=== PATIENT | female | born 1975 | race Caucasian/White ===

== ENCOUNTER 2024-07-26 15:07 | Outpatient (CLI) | payer OTHER, SELFPAY ==
--- NOTE | ~2024-07-26 | MM_ITS ---
EXAMINATION: MM screening nikki BI w mary ann HISTORY: Screening mammogram TECHNIQUE: Craniocaudal and mediolateral oblique 3-D tomosynthesis images were obtained and synthetic 2-D images were generated. CAD analysis was submitted and interpreted. COMPARISON: No prior mammogram is available for comparison at this institution. BREAST PARENCHYMAL COMPOSITION:Dense: The breasts are heterogeneously dense, which may obscure small masses. FINDINGS: No suspicious mass, calcification, or architectural distortion are identified in either kashif ast to suggest malignancy. There has been no suspicious interval change. IMPRESSION: No mammographic evidence of malignancy. Recommend routine screening mammography in one year. BI-RADS Category 1: Negative Reviewed, dictated and finalized at location . ION MASTER
== END 2024-07-26 15:08 | disposition home or self-care (01) ==
PROVIDERS: PCP Internal Medicine; Visit Provider Internal Medicine
DX: Z12.31 Encounter for screening mammogram for malignant neoplasm of breast (principal)
CPT/HCPCS: 77063; 77067

== ENCOUNTER 2024-08-01 09:14 | Emergency (ER) | payer OTHER, SELFPAY ==
--- NOTE | ~2024-08-01 | XR_ITS ---
EXAMINATION: XR chest 2V DATE: 08/01/2024 09:52 INDICATION: Productive cough TECHNIQUE: PA and lateral views of the chest were obtained. COMPARISON: None FINDINGS: The lungs are clear with no focal airspace opacities, pulmonary edema, pleural effusion or pneumothor ax. The cardiomediastinal silhouette is normal. Mild thoracic spondylosis. IMPRESSION: 1. No acute cardiopulmonary disease. Reviewed, dictated and finalized at location A. ICIST SOLID STATE
[2024-08-01 09:22] VITALS: BP 130/86; PULSE 58; RESP 16; TEMP 35.3; O2SAT 100
--- NOTE | 2024-08-01 09:31 | ED.URI ---
HPI - URI/Sore Throat General Chief Complaint: Upper Respiratory Infection Stated Complaint: Cough Source: patient, RN notes reviewed and old records reviewed Mode of arrival: ambulatory Limitations: no limitations History of Present Illness HPI Narrative: Patient currently being treated with Tamiflu for influenza presents with complaints of feeling worse instead of better. She reports that multiple members of her family are sick, everybody except her seems to be getting better. Her symptoms began about 4 days ago. She reports worsening cough, excessive sputum production. Intermittent wheezing. Subjective fever. She has been taking uofr-axz-djzmtmg remedies along with her Tamiflu, minimal relief. Related Data Home Medications ?Medication ?Instructions ?Recorded ?Confirmed ?Last Taken ?Type bupropion HCl 150 mg 24 hr tablet, 150 mg PO DAILY 08/01/24 08/01/24 Unknown History extended release oseltamivir 75 mg capsule 75 mg PO Q12H 08/01/24 08/01/24 Unknown History sertraline 100 mg tablet 100 mg PO Q24H 08/01/24 08/01/24 Unknown History Allergies Allergy/AdvReac Type Severity Reaction Status Date / Time No Known Allergies Allergy Verified 08/01/24 09:49 Review of Systems Review of Systems: All systems reviewed & are unremarkable except as noted in HPI and below Constitutional: Constitutional: Reports as per HPI, Reports no additional constitutional complaints, Reports fever(s), Reports headache(s) and Reports lethargy ENT: Reports system reviewed and no additional complaints, except as documented and Reports nasal discharge Cardiovascular: Cardiovascular: Reports no additional cardiovascular complaints Respiratory: Respiratory: Reports no additional respiratory complaints, Reports chest congestion, Reports cough, Reports excessive phlegm production and Reports wheezing Gastrointestinal: Gastrointestinal: Reports no additional gastrointestinal complaints PMFSH Comments At the time of my signature, I reviewed and agree with the nursing past medical, surgical, social, and family history. There is no relevant family history pertinent to the patient complaint. Exam Const: General: cooperative, no acute distress, alert and awake Orientation/consciousness: oriented to person, oriented to place and oriented to time HENMT: Head: normal to inspection Mouth: Yes moist mucous membranes Resp: Effort & Inspection: normal respiratory effort and able to speak in complete sentences Auscultation: clear to auscultation bilaterally, no crackles, no rales, no rhonchi and no wheezes Cardio: Palpation: normal PMI Rate: regular rate Rhythm: regular rhythm Heart sounds: S1 normal heart sound present and S2 normal heart sound present Neuro: General: oriented to person, oriented to place and oriented to time Cranial nerves: Yes CN's II-XII intact bilaterally Psych: Appearance: grossly normal Thought process: Normal thought process present Insight: Good insight present (Psych) Judgement: Good judgement present (Psych) Course Course Level of Care: Express Care Visit Vital Signs Vital signs: Vital Signs Temperature 95.5 F L 08/01/24 09:22 Pulse Rate 58 L 08/01/24 09:22 Respiratory Rate 16 08/01/24 09:22 Blood Pressure 130/86 08/01/24 09:22 Pulse Oximetry 100 08/01/24 09:22 Oxygen Delivery Room Air 08/01/24 09:22 Temperature 95.5 F L 08/01/24 09:22 Pulse Rate 58 L 08/01/24 09:22 Respiratory Rate 16 08/01/24 09:22 Blood Pressure 130/86 08/01/24 09:22 Pulse Oximetry 100 08/01/24 09:22 Oxygen Delivery Room Air 08/01/24 09:22 Reviewed MDM - URI/Sore Throat MDM Narrative Medical decision making narrative: Patient currently being treated for influenza, negative chest x-ray today. Will treat symptomatically. Patient is nontoxic appearing, stable for discharge home Discharge instructions reviewed with patient, as well as provided in writing per nursing staff. The instructions also include specific and strict return/GO TO THE ER as well as f/u information. All questions have been answered, and the patient deny any further questions with discharge and discharge plan. Some parts of this dictation were generated by voice recognition software and may contain typographical and/or grammatical inaccuracies. Differential Diagnosis Differential diagnosis: Likely upper respiratory infection, otitis media, sinusitis and viral infection Medical Records Attestation: I reviewed the patient's medical records. Imaging Data Attestation: I personally reviewed and interpreted this imaging study as follows: My impression: Negative Radiologist's impression: [facility] [address] [place] [address] XRay Report Signed Patient: Ondina Woodall : 1975 MR#: [id number] Age: 48 Acct:[id number] Loc: [facility] ADM Date: 08/01/24Attending Dr: Ordering Physician: Kelly Garvin FNP Date of Service: 08/01/24 Procedure(s): XR chest 2V Accession Number(s): [id number] cc: Kelly Garvin FNP; EleAvis MD~ EXAMINATION: XR chest 2V DATE: 08/01/2024 09:52 INDICATION: Productive cough TECHNIQUE: PA and lateral views of the chest were obtained. COMPARISON: None FINDINGS: The lungs are clear with no focal airspace opacities, pulmonary edema, pleural effusion or pneumothorax. The cardiomediastinal silhouette is normal. Mild thoracic spondylosis. IMPRESSION: 1. No acute cardiopulmonary disease. Reviewed, dictated and finalized at location A. STERED DENTAL HYGIENIST Dictated By: Stuart Moraes MD 08/01/24 1011 Signed By: <Electronically signed by Stuart Moraes MD in OV> Discharge Plan Discharge Clinical Impression: Influenza Patient Disposition: Home, Self-Care Condition: Stable Instructions: Antibiotic Form, Influenza (ED) Additional Instructions: Take medications as prescribed. Follow-up with primary care provider. Emergency department for new or worse symptoms Patient Language: Prydeinig Prescriptions: New prednisone 50 mg tablet 50 mg PO DAILY Qty: 5 0RF albuterol sulfate [Ventolin HFA] 90 mcg/actuation HFA aerosol inhaler 2 puff inhalation QID PRN (Reason: shortness of breath or wheezing) Qty: 8.5 0RF No Action bupropion HCl 150 mg tablet extended release 24 hr 150 mg PO DAILY oseltamivir 75 mg capsule 75 mg PO Q12H sertraline 100 mg tablet 100 mg PO Q24H Follow-up/Referrals: Ele,MD Avis [Primary Care Provider] - 2 Weeks Time of Disposition: 10:30
== END 2024-08-01 10:35 | disposition home or self-care (01) ==
PROVIDERS: Emergency Provider Nurse Practitioner Family; PCP Internal Medicine
DX: J11.1 Influenza due to unidentified influenza virus with other respiratory manifestations (principal); Z79.899 Other long term (current) drug therapy
CPT/HCPCS: 71046; 99203; G0463

== ENCOUNTER 2025-07-29 10:33 | Outpatient (CLI) | payer OTHER, SELFPAY ==
--- NOTE | ~2025-07-29 | MM_ITS ---
EXAMINATION: MM screening nikki BI w mary ann HISTORY: Screening TECHNIQUE: Craniocaudal and mediolateral oblique 3-D tomosynthesis images were obtained and synthetic 2-D images were generated. CAD analysis was submitted and interpreted. COMPARISON: 07/26/2024 BREAST PARENCHYMAL COMPOSITION: Dense: The breasts are heterogeneously dense, which may obscure small masses FINDINGS: There is no evidence of suspicious mass, calcification, or architectural distortion to suggest malignancy in either breast. There has been no suspicious interval change. IMPRESSION: 1. No mammographic evidence of malignancy. 2. Recommend routine screening mammography in one year. BI-RADS Category 1: Negative Reviewed, dictated and finalized at location O. PREPARATION TUTOR
== END 2025-07-29 10:34 | disposition home or self-care (01) ==
PROVIDERS: PCP Internal Medicine; Visit Provider Internal Medicine
DX: Z12.31 Encounter for screening mammogram for malignant neoplasm of breast (principal)
CPT/HCPCS: 77063; 77067

== ENCOUNTER 2025-08-03 20:24 | Emergency (ER) | payer OTHER, SELFPAY ==
[2025-08-03 20:34] VITALS: BP 156/90; PULSE 82; RESP 17; TEMP 36.4; O2SAT 100
[2025-08-03] MEDS: TETANUS,DIPHTHERIA,AC PERTUSSIS ADULT (0.5 ML) BOOSTRIX IM (21:33)
--- OUTSIDE RECORDS SUMMARY | 2025-08-03 21:44 | XMS_ITS | Encounter Summary ---
Author Organization [facility] Address [address] [place] [address] Care Team Providers Care Lipcoat Sprayer Name Role Phone Avis Marlow MD Primary Care Provider [phone] Encounter Details Date Type Department Care Team (Late st Contact Info) Description 10/28/2024 MyChart Message Enc [facility] Multispecialty Care - [place] [address] [place] [address] [address] [place], [place] [phone] Avis Marlow MD [address] [place] [address] [address] [place], [place] [id number] Sleep trouble Social History Tobacco Use Types Packs/Day Years Used Date Smoking Tobacco: Former Cigarettes 1 2 000 - 1993 Smokeless Tobacco: Never Comments:Counseled by Dr. Kami motley. AUDIT-C Answer Date Recorded Q1: How often do you have a drink containing alc ohol? 2-4 times a month 02/04/2024 Q2: How many drinks containi ng alcohol do you have on a typical day when you are drinking? 1 or 2 02/04/2024 Q3: How often do you have si x or more drinks on one occasion? Never 02/04/2024 PHQ-2 Answer Date Recorded Patient Health Questionnaire-2 Score 0 10/18/2024 Comments Unknown Sex and Gender Information Value Date Recorded Sex Assigned at Female 10/18/2024 9:10 AM CDT Legal Sex Female 3:18 PM CDT Gender Identity Female 10/18/2024 9:10 AM CDT Sexual Orientation Straight 10/18/2024 9: 10 AM CDT documented as of this encounter Progress Notes * Alea Lindsay - 11/09/2024 7:48 AM CDT November 2024 appt canceled. LVM for patient to return call to schedule appt for March 2025 per request. documented in this encounter Plan of Treatment Upcoming Encounters Date Type Department Care Team (Late st Contact Info) Description 05/02/2026 7:00 AM CDT Office Visit [facility] Medical [facility] Multispecialty [facility] [place] [address] [address] [place] [address] Avis Marlow MD [address] [place] [address] documented as of this encounter Visit Diagnoses Not on filedocumented in this encounter Additional Health Concerns Assessment Noted Time PHQ-9 Depression Total Score: 3 10/19/19 25 9:54 AM CDT documented as of this encounter Care Teams Lipcoat Sprayer Relationship Specialty Start Date End Date Avis Marlow MD [address] [place] [id number] PCP - General INTERNAL MEDICINE 02/04/24 documented as of this encounter
--- OUTSIDE RECORDS SUMMARY | 2025-08-03 21:44 | XMS_ITS | Encounter Summary ---
Author Organization [facility] Address [address] [place] [address] Care Team Providers Care Woven Label Designer Name Role Phone Avis Malrow MD Primary Care Provider [phone] Encounter Details Date Type Department Care Team (Late st Contact Info) Description 02/28/2025 MyChart Message Enc [facility] Medical [facility] Multispecialty Care - [place] [address] [place] [address] [address] [place], [place] [phone] Avis Marlow MD [address] [place] [address] [address] [place], [place] [phone] Annual physical Social History Tobacco Use Types Packs/Day Years [...] AM CDT documented as of this encounter Plan of Treatment Upcoming Encounters Date Type Department Care Team (Late st Contact Info) Description 05/02/2026 7:00 AM CDT Office Visit [facility] Medical [facility] Multispecialty Care [place] [address] [address] [place] [address] [place] [address] [place] [address] documented as of this encounter Visit Diagnoses Not on filedocumented in this encounter Additional Health Concerns Assessment Noted Time PHQ-9 Depression Total Score: 3 10/19/19 25 9:54 AM CDT documented as of this encounter Care Teams Woven Label Designer Relationship Specialty Start Date End Date Avis Marlow MD [address] [place] [id number] PCP - General INTERNAL MEDICINE 02/04/24 documented as of this encounter
--- OUTSIDE RECORDS SUMMARY | 2025-08-03 21:45 | XMS_ITS | Clinical Summary ---
Author Organization [facility] Address [address] [place] [address] Care Team Providers Care Piano Accompanist Name Role Phone Avis Marlow MD Primary Care Provider [phone] Allergies Active Allergy Reactions Criticality Noted Date Comments Trazodone Runny Nose,Swelling Medium 05/04/2022 Medications progesterone (PROMETRIUM) 100 MG capsule 1 capsule (100 mg total). 08/20/2024 Active estradiol (VIVELLE-DOT) 0.05 MG/24HR patch 08/20/2024 Active escitalopram (LEXAPRO) 10 MG tabletIndicatio ns:Anxiety Take 1 tablet (10 mg total) by mouth every morning. 90 tablet 3 04/19/2025 Active vitamin B-12 (CYANOCOBALAMIN ) (CYANOCOBALAMIN ) 1000 mcg tabletIndicatio ns:B12 deficiency TAKE ONE TABLET BY MOUTH EVERY DAY 90 tablet 3 05/20/2025 Active Active Problems Problem Noted Date Diagnosed Date B12 deficiency 02/14/2024 Encounters Date Type Department Care Team Description 07/14/2025 - 07/14/2025 11:59 PM [email or web address] [address] [place] [address] Discharge Disposition: Home or Self Care (Routine Discharge) 07/14/2025 [facility] [address] [place] [address] Avis Marlow MD CELIAC DISEASE ANTIBODY PANEL, TISSUE TRANSGLUTAMINASE IGA AB 07/14/2025 [facility] [place] [address] [place] [address] Monkia Wray MA 07/14/2025 Travel 07/01/2025 MyChart Message Enc [facility] Multispecialty Care - [place] [address] [place] [address] Avis Marlow MD Celiac bloodwork from Last 3 Months Immunizations Immunization Administration Dates Next Due Influenza Adult (Generic) 06/02/2024 Family History Medical History Relation Comments Hypertension Brother 1 Hypertension Brother 2 Diabetes Maternal Grandfather Hypertension Maternal Grandfather Hypertension Maternal Grandmother Hypertension Mother Heart Disease Paternal Grandfather Cancer Paternal Grandmother pancreatic Relation Status Comments Brother 1 Brother 2 Alive Maternal Grandfather Alive Maternal Grandmother Alive Mother Alive Paternal Grandfather Alive Paternal Grandmother Alive Social History Tobacco Use Types Packs/Day Years Used Date Smoking Tobacco: Former Cigarettes 1 2 - 1993 Smokeless Tobacco: Never Tobacco Cessation:Counseling Given: Yes Comments:Counseled by Dr. Marlow. Alcohol Use Standard Drinks/Week Comments Yes 1.7 (1 standard drink = 0.6 oz p ure alcohol) 1-2 drinks/week on occasion AUDIT-C Answer Date Recorded Q1: How often [...] Answer Date Recorded Patient Health Questionnaire-2 Score 3 04/19/2025 Comments Unknown Sex and Gender Information Value Date Recorded Sex Assigned at Female 10/18/2024 9:10 AM CDT Legal Sex Female 3:18 PM CDT Gender Identity Female 10/18/2024 9:10 AM CDT Sexual Orientation Straight 10/18/2024 9: 10 AM CDT Last Filed Vital Signs Vital Sign Reading Time Taken Comments Blood Pressure 106/68 04/19/2025 7:30 AM CDT Pulse 60 04/19/2025 7:30 AM CDT Temperature 35.2 C (95.3 F) 04/19/2025 7:30 AM CDT Respiratory Rate 16 04/19/2025 7:30 AM CDT Oxygen Saturation 98% 04/19/2025 7:30 AM CDT Inhaled Oxygen Concentration - - Weight 75.2 kg (165 lb 12.8 oz) 04/19/2025 7:30 AM CDT Height 165.1 cm (5' 5) 04/19/2025 7:30 AM CDT Body Mass Index 27.59 04/19/2025 7:30 AM CDT Plan of Treatment Upcoming Encounters Date Type Department Care Team (Late st Contact Info) Description 05/02/2026 7:00 AM CDT Office Visit [facility] Multispecialty Care - [place] [address] [facility] [address] [place], [place] [phone] Avis Marlow MD [address] [facility] [address] [place] [address] Health Maintenance Due Date Last Done Comments Colorectal Cancer Screening Colonoscopy (10 Years) 1975 Hepatitis B Vaccines (1 of 3 - 19+ 3-dose series) 12/06/1995 Annual Physical 04/19/2026 04/19/2025, 02/04/2024 Mammogram Screening 07/26/2026 07/26/2024, 07/02/2022, 03/16/2020, Additional history exists Cervical Cancer Screening Pap Smear (Age 30 to 64) Every 3 Years 03/17/2027 03/17/2024 Cervical Cancer Screening Pap with HPV Testing (Age 30 to 64) Every 5 Years 03/17/2029 03/17/2024 Cervical Cancer Screening with HPV 03/17/2029 DTaP, Tdap and Td Vaccines (3 - Td or Tdap) 10/22/2032 10/22/2022, 05/03/2017 Hepatitis C Completed 02/11/2024 PHQ-2 (Physician [place]) Completed 04/19/2025 COVID-19 Vaccine Completed 04/30/2025, 05/2023, 06/03/2021, Additional history exists Influenza Adult Completed 04/30/2025, 05/06, 04/25/2022, Additional history exists Hepatitis A Vaccines Aged Out No long er eligible based on patient's age to complete this topic Meningococcal B Vaccine Aged Out No l onger eligible based on patient's age to complete this topic Meningococcal Vaccine Aged Out No demetrio gwendolyn eligible based on patient's age to complete this topic Pneumococcal Vaccine: Pediatrics (0 to 5 Years) and At-Risk Patients (6 to 49 Years) Aged Out No longer eligible based on patient's age to complete this topic RSV Immunizations Under 20 Months Aged Out No longer eligible based on patient's age to complete this topic Procedures Procedure Name Priority Date/Time Associated Diagnosis Comments TISSUE TRANSGLUTAMINASE IGA AB Routine 07/14/2025 8:12 AM REPRODUCTION TECHNICIAN IMMUNOGLOBULINS IGA IGG IGM Routine 07/14/2025 8:12 AM REPRODUCTION TECHNICIAN Family history of celiac disease MAMMOGRAM GENERIC (SCAN ORDER) 07/26/2024 HUMAN PAPILLOMAVIRUS, HIGH-RISK TYPES Routine 03/17/2024 12:00 PM CDT CYTOPATH CERV/VAG THIN LAYER Routine 03/17/2024 12:00 AM CDT HEPATITIS C ANTIBODY Routine 02/11/2024 7:45 AM CDT Annual physical exam Establishing care with new doctor, encounter for General medical exam Encounter for hepatitis C screening test for low risk patient from Last 3 Months or Most Recently Relevant to Health Maintenance Results * TISSUE TRANSGLUTAMINASE IGA AB (07/14/2025 8:12 AM REPRODUCTION TECHNICIAN) TISSUE TRANSGLUTAMINASE IGA AB <0.2 U/ML 07/18/2025 12:26 PM REPRODUCTION TECHNICIAN [facility] Comment: NEGATIVE <7 JAIRO U/mL EQUIVOCAL 7-10 JAIRO U/mL POSITIVE >10 JAIRO U/mL 07/14/2025 8:12 AM REPRODUCTION TECHNICIAN us Kari Greer NP LABORATORY Final Resul t [facility] [address] [place] [address], [id number] * CELIAC DISEASE ANTIBODY PANEL (07/14/2025 8:12 AM REPRODUCTION TECHNICIAN) IGA 80.7 70.0 - 400.0 MG/DL 07/14/2025 5:54 PM REPRODUCTION TECHNICIAN [facility] BLOOD VENOUS BLOOD SPECIMEN / Unknown 07/14/2025 8:12 AM REPRODUCTION TECHNICIAN Kari Greer STATE ATTORNEY LABORATORY Final Resul t [facility] [address] [place] [address], [id number] * MAMMOGRAM GENERIC (SCAN ORDER) (07/26/2024) Anatomical Region Laterality Modality Other 07/26/2024 [facility] Scanned SCANNING Final Resu lt * HUMAN PAPILLOMAVIRUS, HIGH-RISK TYPES (03/17/2024 12:00 PM CDT) SPEC DESCRIPTION CERVIX 03/19/20 11:03 AM CDT [facility] HPV DNA HIGH RISK NEGATIVE NEGATIVE 03/19/2024 11:33 PM CDT [facility] Comment:SEE CYTOLOGY REPORT 03/17/2024 12:0 0 PM CDT Avis Marlow MD PATHOLOGY/CYTOLOGY ORDERABLES Fi nal Result [facility] [address] [place] [address], [place] [phone] * Cytopath Cerv/Vag Thin Layer (03/17/2024 12:00 AM CDT) THIN PREP PAP [facility] [address] [place] [address] Department of Pathology Pathology Report CERVICAL/VAGINAL PAP SMEAR REPORT Name: ONDINA WOODALL Age: 5 1975 (Age: 48) Location: [facility] Sex: F Collected Date: 03/17/2024 [facility] #: [id number] Date Received: 03/19/2024 Date Reported: 03/22/2024 Provider: AVIS MARLOW MD INTERPRETATION CERVICAL/ENDOCERVI GA: SATISFACTORY FOR EVALUATION. ENDOCERVICAL/TRANS FORMATION ZONE COMPONENT PRESENT. NEGATIVE FOR INTRAEPITHELIAL LESION OR MALIGNANCY. NEGATIVE FOR HIGH RISK HPV. The FDA approved Aptima HPV assay is an in vitro nucleic acid amplification test for the qualitative detection of E6/E7 viral messenger RNA (mRNA) from 14 high-risk types of human papillomavirus (HPV) in cervical specimens. The high-risk HPV types detected by the assay include: 16,18,31,33,35,39, 45,51,52,56,58,59, 66, and 68. Electronically Signed Out By DEVYN Hsu (ASCP) CLINICAL HISTORY Z12.4 SCREENING FOR CERVICAL CANCER SCREENING PAP ThinPrep Pap Test with screening HR HPV testing requested, with reflex HPV 16/18 genotyping on negative cytology, positive HR HPV Date of Last Menstrual Period: 02/21/2024 Menstrual Status: Regular SPECIMEN SUBMITTED CERVICAL/ENDOCERVI GA Specimen Received:1 Thin Prep Vial, Image Assisted Pap (SMD) Please note: The Pap smear is not a diagnostic test. It is a screening test. Negative results on combined screening (Pap test and HPV-DNA) have a high negative predictive value (99.1-100 percent) for cervical cancer. The pap test is not effective in detecting cervical adenocarcinoma. [facility] 03/17/2024 03/19/2024 7:0 4 AM CDT Comment:CERVICAL/ENDOCERVICA L us Avis Marlow MD PATHOLOGY/CYTOLOGY ORDERABLES Fi nal Result [facility] [address] [place] [address], * HEPATITIS C ANTIBODY (02/11/2024 7:45 AM CDT) HEPATITIS C AB NON-REACTI VE NON-REACT MAYDA 02/11/2024 8:10 PM CDT [facility] Comment: ANTIBODIES TO HCV NOT DETECTED. DOES NOT EXCLUDE THE POSSIBILITY OF EXPOSURE TO HCV. 02/11/2024 7:45 AM CDT Avis Marlow MD LABORATORY Final Result [facility] [address] [place] [address], [id number] from Last 3 Months or Most Recently Relevant to Health Maintenance Insurance [facility] Care Teams Piano Accompanist Relationship Specialty Start Date End Date Avis Marlow MD [address] [facility] [address] [place] [address] PCP - General INTERNAL MEDICINE 02/04/24
--- OUTSIDE RECORDS SUMMARY | 2025-08-03 21:45 | XMS_ITS | Encounter Summary ---
Author Organization [facility] Address [address] [place] [address] Care Team Providers Care Substation Operator Apprentice Name Role Phone Avis Marlow MD Primary Care Provider [phone] Encounter Details Date Type Department Care Team (Late st Contact Info) Description 03/19/2024 MyChart Message Enc [facility] Medical Group Multispecialty Care - [place] [address] [place] [address] [address] [place], [place] [phone] Avis Marlow MD [address] [place] [address] [address] [place], [place] [phone] Pap results Social History Tobacco Use Types Packs/Day Years Used Date Smoking Tobacco: Former Cigarettes 1 2 000 - 1993 Smokeless Tobacco: Never Comments:Counseled by Dr. Kmai motley. AUDIT-C Answer Date Recorded Q1: How [...] Date Recorded Patient Health Questionnaire-2 Score 0 02/04/2024 Comments Unknown Sex and Gender Information Value [...] Description 05/02/2026 7:00 AM CDT Office Visit [facility] Medical [facility] Multispecialty Care - [place] [address] [address] [place] [address] [place] [address] [place] [address] documented as of this encounter Visit Diagnoses Not on filedocumented in this encounter Additional Health Concerns Assessment Noted Time PHQ-9 Depression Total Score: 7 02/04/20 24 1:58 PM CDT documented as of this encounter Care Teams Substation Operator Apprentice Relationship Specialty Start Date End Date Avis Marlow MD [address] [place] [address] PCP - General INTERNAL MEDICINE 02/04/24 documented as of this encounter
--- OUTSIDE RECORDS SUMMARY | 2025-08-03 21:45 | XMS_ITS | Encounter Summary ---
Author Organization [facility] Address [address] [place] [address] Care Team Providers Care Lumber Press Operator Name Role Phone Avis Marlow MD Primary Care Provider [phone] Encounter Details Date Type Department Care Team (Latest Contact Info) Description 07/14/2025 Results Follow-Up [facility] - [address] [address] [address] [place], [place] [id number] Avis Marlow MD [address] [place] [address] [address] [place] [address] CELIAC DISEASE ANTIBODY PANEL, TISSUE TRANSGLUTAMINASE IGA AB Social History Tobacco Use Types Packs/Day Years Used Date Smoking Tobacco: Former Cigarettes 1 2 000 - 1993 Smokeless Tobacco: Never Comments:Counseled by Dr. Kami motley. Alcohol Use Standard Drinks/Week Comments Yes 1.7 [...] Description 05/02/2026 7:00 AM CDT Office Visit [facility] [address] [address] [address] [place] [address] Avis Marlow MD [address] [place] [address] documented as of this encounter Visit Diagnoses Not on filedocumented in this encounter Additional Health Concerns Assessment Noted Time PHQ-9 Depression Total Score: 9 04/19/20 25 7:57 AM CDT documented as of this encounter Care Teams Lumber Press Operator Relationship Specialty Start Date End Date Avis Marlow MD [address] [place] [address] PCP - General INTERNAL MEDICINE 02/04/24 documented as of this encounter
--- OUTSIDE RECORDS SUMMARY | 2025-08-03 21:45 | XMS_ITS | Encounter Summary ---
Author Organization [facility] Address [address] [place] [address] Phone Care Team Providers Care Sales Attendant Name Role Phone No, Physician Primary Care Provider [phone] Jackelyn Torres MD Primary Care Provider [phone] Louis Dueñas MD Unavailable [phone] Encounter Details Date Type Department Care Team (Latest Contact Info) Description 02/05/2017 Orders Only [facility] CONVERSION Scanning, Provider Social History Tobacco Use Types Packs/Day Years Used Date Smoking Tobacco: Never Assessed Comments Unknown Sex and Gender Information Value Date Recorded Sex Assigned at Not on file Legal Sex Female 9:47 AM SUCTION WORKER Gender Identity Not on file Sexual Orientation Not on file documented as of this encounter Plan of Treatment Not on file documented as of this encounter Procedures Procedure Name Priority Date/Time Associated Diagnosis Comments OBSTETRIC/GYNECOLOGY ULTRASONOGRAPHY REPORT 02/05/2017 2:32 PM CDT documented in this encounter Results * OBSTETRIC/GYNECOLOGY ULTRASONOGRAPHY REPORT (02/05/2017 2:32 PM CDT) Anatomical Region Laterality Modality Ultrasound us Provider Scanning IMG OB US PROCEDURES Final Res ult documented in this encounter Visit Diagnoses Not on filedocumented in this encounter Care Teams Sales Attendant Relationship Specialty Start Date End Date No, Physician PCP - General 02/05/17 04/18/21 Jackelyn Torres MD PCP - General Family Medicine 04/19/21 Louis Dueñas MD [address] [address] Surgeon Orthopedic Surgery 10/27/22 documented as of this encounter
--- OUTSIDE RECORDS SUMMARY | 2025-08-03 21:45 | XMS_ITS | Clinical Summary ---
Author Organization [facility] Address [address] [place] [address] Care Team Providers Care Filter Tank Tender Name Role Phone Jackelyn Torres MD Primary Care Provider [phone] Louis Dueñas MD Unavailable [phone] Allergies Active Allergy Reactions Criticality Noted Date Comments Trazodone Rhinitis,Swelling Medium 05/04/2022 Medications escitalopram (LEXAPRO) 20 mg tabletIndication s:Anxiety TAKE 1 TABLET(20 MG) BY MOUTH DAILY 90 tablet 3 02/11/2023 Active buPROPion XL (WELLBUTRIN XL) 150 mg 24 hr tabletIndication s:Anxiety Take 1 tablet (150 mg total) by mouth daily 90 tablet 3 05/15/2023 Active Active Problems Problem Noted Date Diagnosed Date Hx of iron deficiency anemia 01/31/2023 Assessment & Plan (01/31/2023 9:28 AM CDT): As above. Left leg cellulitis 10/26/2022 High cholesterol 04/25/2022 Anxiety 09/14/2021 Assessment & Plan (09/19/2021 9:23 AM BOOKY): Her therapist told her to follow up with PCP because she is starting to have intrusive negative self thoughts, which is what was happening prior to her starting Lexapro 10mg months ago. Her youngest son recently moved to [place] and this has been harrowing for her. She tolerates Lexapro well. Will increased to 20mg and follow up 4-6 weeks. Continue therapy. Fatigue 04/19/2021 Assessment & Plan (01/31/2023 9:28 AM CDT): Likely multifactorial. Will check labs, referral to sleep medicine for evaluation, and increase bupropion. Follow up pending results/response. Premenstrual dysphoric disorder 04/19/2021 Breast lump 04/19/2021 Herniated disc 03/19/2016 Resolved Problems Problem Noted Date Diagnosed Date Resolved Date Prepatellar bursitis 10/25/2022 023 Immunizations Immunization Administration Dates Next Due Influenza, Quadrivalent, Spl it, Preservative Free, Intramuscular 04/25/2022,06/22/2018,06/27/2017 Influenza, Trivalent, IM (MDV) 06/03/2021 Influenza, Trivalent, Preser vative Free, Intramuscular 06/12/2016 Influenza, Unspecified 06/03/2021,05/04/2020 Pfizer SARS-CoV-2 Monovalent Vaccination (12+ Yrs) PURPLE 06/03/2021,11/23/2020,11/02/2020 Sars-cov-2 Covid-19 Mrna, Bi valent, Original/omicron Ba.1 06/13/2023 Tdap 10/22/2022,05/03/2017 Medical History Medical History Date Comments Anxiety 11/2020 Family History Medical History Relation Name Comments Hypertension Brother Favian Diabetes Maternal Grandfather Georges Hypertension Mother Mom Relation Name Status Comments Brother Favian Maternal Grandfather Georges Mother Mom Social History Tobacco Use Types Packs/Day Years Used Date Smoking Tobacco: Former Cigarettes 1 6.1 0 08/04/1993 - 09/04/1999 Smokeless Tobacco: Never Tobacco Cessation:Counseling Given: Not Answered Social Connection and Isolation Panel Answer Date Recorded In a typical week, how many times do you talk on the phone with family, friends, or neighbors? More than three times a week 10/28/2022 How often do you get togethe r with friends or relatives? Three times a week 10/28/2022 How often do you attend [employer] or rastafari services? Never 10/28/2022 Do you belong to any clubs o r organizations such as rastafari groups, unions, fraternal or athletic groups, or school groups? No 10/28/2022 How often do you attend meet ings of the clubs or organizations you belong to? Never 10/28/2022 Are you , , di vorced, , never , or living with a partner? 10/28/2022 Overall Financial Resource Strain (CARDIA) Answe r Date Recorded How hard is it for you to pa y for the very basics like food, housing, medical care, and heating? Not very hard 10/28/2022 PHQ-2 Answer Date Recorded PHQ-2 Total Score (If total score is 3 or more points, staff should administer the PHQ-9) 0 01/31/2023 PRAPARE - Transportation Answer Date Re corded In the past 12 months, has l ack of transportation kept you from medical appointments or from getting medications? No 10/03 In the past 12 months, has l ack of transportation kept you from meetings, work, or from getting things needed for daily living? No 10/28/2022 Personal Safety Answer Date Recorded Have you ever been in or are you currently in a harmful physical or emotional relationship or is someone making you feel afraid or unsafe? Denies 10/25/2022 Comments No Sex and Gender Information Value Date Recorded Sex Assigned at Not on file Legal Sex Female 9:47 AM BOOKY Gender Identity Not on file Sexual Orientation Not on file Last Filed Vital Signs Vital Sign Reading Time Taken Comments Blood Pressure 128/80 04/28/2023 8:02 AM CDT Pulse 62 04/28/2023 8:02 AM CDT Temperature 36.6 C (97.9 F) 04/28/2023 8:02 AM CDT Respiratory Rate 16 04/28/2023 8:02 AM CDT Oxygen Saturation 99% 04/28/2023 8:02 AM CDT Inhaled Oxygen Concentration - - Weight 75.3 kg (166 lb) 04/28/2023 8:02 AM CDT Height 165.1 cm (5' 5) 04/28/2023 8:02 AM CDT Body Mass Index 27.62 04/28/2023 8:02 AM CDT Plan of Treatment Health Maintenance Due Date Last Done Comments Cervical Cancer Screening 1976 Colon Cancer Screening-Colonoscopy 1976 Hepatitis B Screening 1994 Breast Cancer Screening-Mammogram 07/02/2023 07/02/2022, 07/22/2019 Depression Screening 02/01/2024 01/31/2023, 04/25/2022, 04/19/2021 Regular Well Visit/Exam 18-64 04/28/2024 04/28/2023, 04/25/2022, 04/19/2021 Covid-19 Vaccine ( season) 2025 06/13/2023, 06/08/2022, 06/03/2021, Additional history exists Influenza Vaccine (#1) 2025 , 06/03/2021, 06/03/2021, Additional history exists DTaP/Tdap/Td Vaccine (3 - Td or Tdap) 10/22/2032 10/22/2022, 05/03/2017 Hepatitis C Screening Completed 11/14/2016, 017 Pneumococcal vaccine <65 Aged Out No longer eligible based on patient's age to complete this topic Procedures Procedure Name Priority Date/Time Associated Diagnosis Comments SCREENING MAMMOGRAM BILATERAL W CORAL Schedule Routine, Read Routine (OP Routine) 07/02/2022 8:20 AM BOOKY Encounter for screening mammogram for malignant neoplasm of breast HEPATITIS C ANTIBODY Routine 11/14/2016 10:49 AM CDT from Last 3 Months or Most Recently Relevant to Health Maintenance Results * Screening Mammogram Bilateral [place] (07/02/2022 8:20 AM BOOKY) Anatomical Region Laterality Modality Breast Bilateral Mammography Narrative 07/02/2022 8:58 AM BOOKY Screening Mammogram Bilateral W Coral: 07/02/22 Clinical: Encounter for screening mammogram for malignant neoplasm of breast. Prior Study Comparisons: Comparison was made to the prior available relevant studies at the time of interpretation. Findings: Bilateral No significant masses, malignant type calcifications, skin thickening, nipple retraction, or significant lymphadenopathy is noted in either breast. The CAD review showed no significant findings. The breasts are heterogeneously dense, which may obscure small masses. The patient will be notified of results by letter. Impression: BI-RADS ATLAS category (overall): 1 - Negative There is no mammographic evidence of malignancy. Routine Screening Mammogram in 1 Yr is recommended. Overall Assessment: 1 - Negative us Luisana Courtney COMMUNITY WORKER IMG MAMMO PROCEDURES Final Resul t * Hepatitis C antibody (11/14/2016 10:49 AM CDT) Hep C Ab Non-Reactiv e Non-Reactiv e [facility] Blood specimen (specimen) 11/14/2016 10:49 AM CDT 11/14/2016 12:52 PM CDT us Notinfile Unknown LAB MICROBIOLOGY - GENERAL ORD ERABLES Edited Result - Final [facility] [address] Department [place] [address] from Last 3 Months or Most Recently Relevant to Health Maintenance Insurance [facility] [place] [id number] [facility] Advance Directives For more information, please contact: [phone] * Full Code (Latest Code Status on File) Date Activated Date Inactivated Comments 10/25/2022 5:35 PM 10/28/2022 5:13 PM Care Teams Filter Tank Tender Relationship Specialty Start Date End Date Jackelyn Torres MD PCP - General Family Medicine 04/19/21 Louis Dueñas MD [address] [facility] [facility] [address] [place] [address] Surgeon Orthopedic Surgery 10/27/22
--- OUTSIDE RECORDS SUMMARY | 2025-08-03 21:45 | XMS_ITS | Clinical Summary ---
Author Organization [employer] [address] Address [address] [place] [address] Care Team Providers Care Economic Historian Name Role Phone Unavailable Primary Care Provider Unavailabl e Allergies No known active allergies Medications No known medications Active Problems No known active problems Family History Medical History Relation Name Comments Healthy Brother Healthy Daughter Healthy Father Healthy Mother Healthy Son Relation Name Status Comments Brother Alive Daughter Alive Father Alive Mother Alive Son Alive Social History Tobacco Use Types Packs/Day Years Used Date Smoking Tobacco: Former Cigarettes Smokeless Tobacco: Former Alcohol Use Standard Drinks/Week Comments Yes 0 (1 standard drink = 0.6 oz pur e alcohol) Comments No Sex and Gender Information Value Date Recorded Sex Assigned at Not on file Legal Sex Female 9:52 PM CDT Gender Identity Not on file Sexual Orientation Not on file Last Filed Vital Signs Vital Sign Reading Time Taken Comments Blood Pressure 125/78 07/05/2019 7:29 PM TAX AUDIT MANAGER Pulse 67 07/05/2019 7:29 PM TAX AUDIT MANAGER Temperature 36.9 C (98.5 F) 07/05/2019 7:29 PM TAX AUDIT MANAGER Respiratory Rate 16 07/05/2019 7:29 PM TAX AUDIT MANAGER Oxygen Saturation 99% 07/05/2019 7:29 PM TAX AUDIT MANAGER Inhaled Oxygen Concentration - - Weight 65.8 kg (145 lb) 07/05/2019 7:29 PM TAX AUDIT MANAGER Height 165.1 cm (5' 5) 07/05/2019 7:29 PM TAX AUDIT MANAGER Body Mass Index 24.13 07/05/2019 7:29 PM TAX AUDIT MANAGER Plan of Treatment Health Maintenance Due Date Last Done Comments DTAP/TDAP/TD VACCINES (1 - Tdap) 12/06/1995 HEPATITIS B VACCINES (1 of 3 - 19+ 3-dose series) 11/1995 HPV/Cotest (21-29) 1997 CERVICAL CANCER SCREENING 2006 HPV/Cotest (30-65) 2006 PAP SMEAR 2006 BREAST CANCER SCREENING 2016 COLORECTAL SCREENING 2021 Colorectal Cancer Screening 2021 FIT-DNA Q 3 years 2021 FIT/FOBT Q 1 year 2021 Flex Sig/CT Colonography Q 5 years 2021 INFLUENZA VACCINE (#1) 2025 Insurance [facility] OPT[employer] PPO [id number] [facility]
--- OUTSIDE RECORDS SUMMARY | 2025-08-03 21:45 | XMS_ITS | Clinical Summary ---
Author Organization [facility] Address [address] [place] [address] Care Team Providers Care Sybase Developer Name Role Phone Unavailable Primary Care Provider Unavailabl e Source Comments [facility],non-owned Affiliates and Associated Physician Practices is amultiple site organization consisting of ambulatory clinics and hospital sitesin [place], [place], [place] and [place]. This disclosure is being madepursuant to the Care Everywhere program and may not contain all information available regarding this patient. Last updated 18[facility] Social History Tobacco Use Types Packs/Day Years Used Date Smoking Tobacco: Never Assessed Comments Unknown Sex and Gender Information Value Date Recorded Sex Assigned at Not on file Legal Sex Female 8:08 AM CDT Gender Identity Not on file Sexual Orientation Not on file Plan of Treatment Health Maintenance Due Date Last Done Comments COLOGUARD (AGES 45-75) - COLON CA SCREENING 1976 COLON MONITORING 1976 COLONOSCOPY - COLON CA SCREENING 1976 CT COLONOGRAPHY - COLON CA SCREENING 1976 Colorectal Cancer Screening 1976 FIT - COLON CA SCREENING 1976 FLEX SIG - COLON CA SCREENING 1976 LIPID TESTING 1976 MAMMOGRAM 1976 HIV SCREENING 12/06/1991 HEPATITIS C SCREENING 12/01/1994 DTAP/TDAP/TD VACCINES (1 - Tdap) 12/06/1995 HEPATITIS B VACCINE (1 of 3 - 19+ 3-dose series) 12/06/1995 PAP SMEAR 1997 DEPRESSION SCREENING 08/04/2024 COVID-19 VACCINE (2024- season) 2025 06/08/2022, 06/03/2021, 11/23/2020, Additional history exists INFLUENZA VACCINE (#1) 2025 2, 06/03/2021, 06/22/2018, Additional history exists ZOSTER VACCINE (1 of 2) 2026 HIB VACCINE Aged Out No longer eligi ble based on patient's age to complete this topic HPV VACCINE Aged Out No longer eligi ble based on patient's age to complete this topic MENINGOCOCCAL (Group B) VACCINE SHARED DECISION-MAKING Aged Out No longer eligible based on patient's age to complete this topic MENINGOCOCCAL GROUPS A/C/Y/W VACCINE Aged Out No longer eligible based on patient's age to complete this topic PNEUMOCOCCAL VACCINE Aged Out No long er eligible based on patient's age to complete this topic
--- OUTSIDE RECORDS SUMMARY | 2025-08-03 21:45 | XMS_ITS | Encounter Summary ---
Author Organization [facility] Address [address] [place] [address] Care Team Providers Care Code Enforcement Supervisor Name Role Phone Unavailable Primary Care Provider Unavailabl e Reason for Visit * Reason Onset Date Comments Courtesy Call 07/08/2019 Encounter Details Date Type Department Care Team (Late st Contact Info) Description 07/08/2019 Telephone [facility] [place] [address] [facility] [place] [address] [place] RT Courtesy Call Social History Tobacco Use Types Packs/Day Years [...] on file documented as of this encounter Visit Diagnoses Not on filedocumented in this encounter
--- OUTSIDE RECORDS SUMMARY | 2025-08-03 21:45 | XMS_ITS | Clinical Summary ---
Author Organization [facility] Address [address] [place] [address] Care Team Providers Care Statistics Professor Name Role Phone Avis Marlow MD Primary Care Provider [phone] Allergies Active Allergy Reactions Criticality Noted Date Comments Trazodone Swelling Medium 05/04/2022 Other Reaction(s): Rhinitis, Runny Nose Immunizations Immunization Administration Dates Next Due Flucelvax Trivalent Prefilled Syringe (18+ Month s) 04/30/2025 Moderna Spikevax Covid-19 0. 5ml Pfs Im; Without Preservat) 04/30/2025 Social History Tobacco Use Types Packs/Day Years Used Date Smoking Tobacco: Never Assessed Comments Unknown Sex and Gender Information Value Date Recorded Sex Assigned at Not on file Legal Sex Female 3:27 PM EDT Gender Identity Not on file Sexual Orientation Not on file Plan of Treatment Health Maintenance Due Date Last Done Comments Colorectal Cancer: COLONOSCOPY Screening every 10 yrs (or Modifier) 1976 Depression: Screening Annually using PHQ-2/9 in Adults 18 yrs or above (or HM Modifier)([facility]) 1994 SDOH Screening Reminder: Annually for all adults ([facility]) 1994 Tobacco Smoking Cessation: i n Adults excluding Women: Behavioral and Pharmacotherapy Interventions ([facility]) 1994 Cervical Cancer: hrHPV alone or with cotesting Pap for Pts 30-65yrs screening every 5yrs ([facility]) 1997 Colorectal Cancer Screening 45 -75 Yrs (or HM Modifier) 2021 Colorectal Cancer: FLEXIBLE SIGMOIDOSCOPY Screening every 5 yrs 2021 Colorectal Cancer: Fecal Immunochemical Test (FIT) Annually [facility] 2021 Colorectal Cancer: High-sensitivity gFOBT Screening Annually [facility] 2021 Colorectal Cancer: Stool Cologuard Screening every 3 yrs 2021 Colorectal Cancer:CT Colonography Screening every 5 yrs 2021 COVID-19 Vaccine Screening: Initial Series and Booster Status ([facility]) (2024- season) 2025 04/30/2025, 06/03/2021, 11/23/2020, Additional history exists Zoster/Shingles Vaccine Series Screening: Adults aged 18+ yrs (or HM Modifiers)([facility]) (1 of 2) 2026 Cervical Cancer Screenin-65 yrs of age (or Modifier) 03/17/2027 Cervical Cancer Screening: Pap every 3 yrs pts age 21-65 03/17/2027 03/17/2024 Cervical Cancer: Pap Screening with Modifier timing ([facility]) 03/17/2027 03/17/2024 DTaP/Tdap/Td Vaccines ([facility]) (3 - Td or Tdap) 10/22/2032 10/22/2022, 05/03/2017 Hepatitis C Virus Infection in Adolescents and Adults: Screening (or Modifier) ([facility]) Completed 02/11/2024 Flu Vaccination: Yearly for ages 18mos through 64 years (or Modifier)([facility]) Completed 04/30/2025, 06/02/2024, 04/25/2022, Additional history exists Pneumococcal Vaccination Screening: Pts 0-19 & 19-49 yrs of age ([facility]) Aged Out No longer eligible based on patient's age to complete this topic Medical Devices Not on file [facility] Care Teams Statistics Professor Relationship Specialty Start Date End Date Avis Marlow MD [address] [place] [address] PCP - General Internal Medicine 04/30/25
--- NOTE | 2025-08-03 21:47 | ED.WOUNDLAC ---
HPI - Wound/Laceration General Chief Complaint: Wound/Laceration Stated Complaint: cat scratch to left hand Time Seen by Provider: 08/03/25 21:13 Source: patient Mode of arrival: ambulatory Limitations: no limitations History of Present Illness HPI narrative: This is a 49-year-old female that presents to the emergency department for scratches to the left hand. Reports her cat scratched her. She is not up to date on tetanus. Reports this happened this afternoon. Has had increasing redness and swelling. Denies fevers. Related Data Home Medications ?Medication ?Instructions ?Recorded ?Confirmed ?Last Taken ?Type bupropion HCl 150 mg 24 hr tablet, 150 mg PO DAILY 08/01/24 08/01/24 Unknown History extended release oseltamivir 75 mg capsule 75 mg PO Q12H 08/01/24 08/01/24 Unknown History sertraline 100 mg tablet 100 mg PO Q24H 08/01/24 08/01/24 Unknown History Allergies Allergy/AdvReac Type Severity Reaction Status Date / Time trazodone AdvReac Intermediate edema Verified 08/03/25 20:25 Review of Systems Review of Systems: All systems reviewed & are unremarkable except as noted in HPI and below Exam Narrative: GENERAL: Well-appearing, well-nourished, and in no acute distress. HEAD: Normocephalic, atraumatic. EYES: EOMI. EXTREMITIES: Normal range of motion. No edema. Several superficial abrasions to the left hand dorsal surface with mild surrounding redness. Normal radial pulse, normal sensation SKIN: Warm, dry, no rash. NEURO: No focal deficits. Alert and oriented x3. PSYCH: Normal mood and affect Course Vital Signs Vital signs: Vital Signs Temperature 97.6 F 08/03/25 20:34 Pulse Rate 82 08/03/25 20:34 Respiratory Rate 17 08/03/25 20:34 Blood Pressure 156/90 H 08/03/25 20:34 Pulse Oximetry 100 08/03/25 20:34 Oxygen Delivery Room Air 08/03/25 20:34 Temperature 97.6 F 08/03/25 20:34 Pulse Rate 82 08/03/25 20:34 Respiratory Rate 17 08/03/25 20:34 Blood Pressure 156/90 H 08/03/25 20:34 Pulse Oximetry 100 08/03/25 20:34 Oxygen Delivery Room Air 08/03/25 20:34 MDM MDM Narrative Medical decision making narrative: Patient presents to the ER for cat scratch to the left hand. Updated on tetanus vaccination. Will be started on Augmentin. Educated on further wound care. Follow up with PCP Differential Diagnosis Differential Diagnosis: cat scratch, cat bite, cellulitis Critical Care Time Critical Care Time Critical Care Time: No Discharge Plan Discharge Clinical Impression: Cat scratch Patient Disposition: Home Condition: Stable Instructions: Antibiotic Form, Animal Bite (ED) Additional Instructions: Return to the emergency department if you experience fever, redness or swelling of your wound, abnormal drainage from your wound, or any other symptoms that are concerning to you. Apply antibiotic ointment daily. Do not soak the wound. Clean with mild soap and water daily. Take oral antibiotic as prescribed Follow-up with your primary care doctor for wound check Patient Language: Indonesian Prescriptions: New amoxicillin-pot clavulanate 875-125 mg tablet 1 tablet PO Q12H 7 Days Qty: 14 0RF No Action bupropion HCl 150 mg tablet extended release 24 hr 150 mg PO DAILY oseltamivir 75 mg capsule 75 mg PO Q12H sertraline 100 mg tablet 100 mg PO Q24H prednisone 50 mg tablet 50 mg PO DAILY Qty: 5 0RF albuterol sulfate [Ventolin HFA] 90 mcg/actuation HFA aerosol inhaler 2 puff inhalation QID PRN (Reason: shortness of breath or wheezing) Qty: 8.5 0RF Follow-up/Referrals: Ele,MD Avis [Primary Care Provider, Unknown]
[2025-08-03 22:00] VITALS: BP 147/88; PULSE 77; RESP 16; O2SAT 99
== END 2025-08-03 22:01 | disposition home or self-care (01) ==
PROVIDERS: Emergency Provider Physician Assistant; PCP Internal Medicine
DX: S60.512A Abrasion of left hand, initial encounter (principal); W55.03XA Scratched by cat, initial encounter; Z23 Encounter for immunization
CPT/HCPCS: 90471; 90715; 99283; A9270